=== PATIENT | male | born 1965 ===

== ENCOUNTER 2020-09-21 10:31 | Outpatient (REF) | payer OTHER, SELFPAY ==
[2020-09-21 17:42] LABS: PSA, Diagnostic 1.4 ng/mL (0.0-3.5)
== END 2020-09-21 10:51 ==
LOC: LBN 10:31
PROVIDERS: PCP Family Medicine; Visit Provider Urology
DX: N40.1 Benign prostatic hyperplasia with lower urinary tract symptoms (principal); Z80.42 Family history of malignant neoplasm of prostate
CPT/HCPCS: 84153